=== PATIENT | male | born 1980 | race Caucasian/White ===

== ENCOUNTER 2017-08-24 20:55 | Emergency (ER) | payer SELFPAY ==
[~2017-08-24] VITALS: Ht 175.3 cm; Wt 83.4 kg
[~2017-08-24 20:55] MED LIST: CIPROFLOXACIN750 MG PO; LORTAB 5/3255 MG PO; METRONIDAZOL500 MG PO
[2017-08-24] MEDS ORDERED: (None)3.5 GM OS (21:38)
[2017-08-24] MEDS ORDERED: GENTAMICIN15 ML/BTL OS (21:38)
[2017-08-24 21:40] VITALS: BP 122/75
== END 2017-08-24 21:50 | disposition home or self-care (01) | DRG 125 ==
LOC: ED 20:55
DX: S05.02XA Injury of conjunctiva and corneal abrasion without foreign body, left eye, initial encounter (principal); X58.XXXA Exposure to other specified factors, initial encounter; Y93.89 Activity, other specified; Y92.009 Unspecified place in unspecified non-institutional (private) residence as the place of occurrence of the external cause